=== PATIENT | female | born 1990 | race Hispanic/Latino ===

== ENCOUNTER → 2016-09-29 | Outpatient (REF) | payer OTHER | LOC: M LAB REF 09:15 | PROVIDERS: ATTEND Physician Assistant | DX: R30.0 Dysuria (principal) ==

== ENCOUNTER 2018-07-14 09:26 | Emergency (ER) | payer OTHER ==
[~2018-07-14] VITALS: Ht 157.5 cm; Wt 50.3 kg
[2018-07-14] MEDS ORDERED: ACETAMINOPHEN 325 MG TAB PO ONE (09:45)
[2018-07-14] MEDS ORDERED: ONDANSETRON 4 MG ORAL DISINTEGRATING TAB (Q0162 PER 1MG) PO ONE (09:45)
[2018-07-14 11:22] VITALS: BP 107/60
== END 2018-07-14 11:23 | disposition home or self-care (01) ==
LOC: M ED 09:26
DX: R10.9 Unspecified abdominal pain (principal)
CPT/HCPCS: 99283; Q0162